=== PATIENT | male | born 2000 | race Caucasian/White ===

== ENCOUNTER 2020-12-29 18:51 | Emergency (ER) | payer BC ==
[2020-12-29] MEDS ORDERED: Lidocaine 1% 30 ML SDV INJECT ONE (19:48)
[2020-12-29] MEDS ORDERED: Diphtheria,Pertussis(Acell),Tetanus Vaccine 0.5 ML Syringe IM ONE (19:51)
--- NOTE | 2020-12-29 19:52 | EDM.PDOC ---
<Errol Jean - Last Filed: 12/29/20 20:06> ED HPI GENERAL MEDICAL PROBLEM - General Chief Complaint: Laceration Stated Complaint: CUT FINGER Time Seen by Provider: 12/29/20 19:48 - History of Present Illness INITIAL COMMENTS - FREE TEXT/NARRATIVE: Aviva is a 20 year old male presenting to the emergency department with a laceration on his right thumb. Laceration occurred about 3 hours ago cut it on a knife. He has good sensation in his finger tips and is able to move his thumb without any issues. - Related Data Allergies Allergy/AdvReac Type Severity Reaction Status Date / Time No Known Allergies Allergy Verified 12/29/20 19:14 Home Meds: Home Meds . [No Known Home Meds] 12/29/20 [History] Past Medical History - Past Health History Medical/Surgical History: Denies Medical/Surgical History - Infectious Disease History Infectious Disease History: Reports: None Social & Family History - Tobacco Use Tobacco Use Status *Q: Never Tobacco User Second Hand Smoke Exposure: No - Caffeine Use Caffeine Use: Reports: Soda - Recreational Drug Use Recreational Drug Use: No ED ROS GENERAL - Review of Systems Review Of Systems: Comprehensive ROS is negative, except as noted in HPI. ED EXAM, SKIN/RASH Exam: See Below Exam Limited By: No Limitations General Appearance: Alert, No Apparent Distress Eye Exam: Bilateral Eye: EOMI Ears: Normal External Exam Nose: Normal Inspection Respiratory/Chest: No Respiratory Distress, Lungs Clear, Normal Breath Sounds Cardiovascular: Normal Peripheral Pulses, Regular Rate, Rhythm Skin: Wound/Incision (2 cm laceration on base of thumb ) ED SKIN PROCEDURES - Laceration/Wound Repair Right Posterior Midline Digit - 1st (Thumb) Anesthetic Type: Local Local Anesthesia - Lidocaine (Xylocaine): 1% Plain Local Anesthetic Volume: 3cc Skin Prep: Isopropyl Alcohol (Alcohol) Closed with: Sutures Lac/Wound length In cm: 4 Suture Size: 4-0 # of Sutures: 3 Suture Type: Other (ethilon ) Departure - Departure Time of Disposition: 20:09 Disposition: Home, Self-Care 01 Clinical Impression: Laceration - Discharge Information *PRESCRIPTION DRUG MONITORING PROGRAM REVIEWED*: Not Applicable *COPY OF PRESCRIPTION DRUG MONITORING REPORT IN PATIENT EAMON: Not Applicable Instructions: Laceration Care, Adult, [id number] Forms: ED Department Discharge Additional Instructions: Advised patient he needs to follow-up in 7-10 days for suture removal, signs of infection discussed, follow-up if present. Sepsis Event Note (ED) - Evaluation Sepsis Screening Result: No Definite Risk <Berenice Pinon - Last Filed: 12/30/20 06:09> Course - Vital Signs Last Recorded V/S: Last Vital Signs Temp 98.8 F 12/29/20 19:10 Pulse 83 12/29/20 20:15 Resp 20 12/29/20 20:15 BP 140/82 12/29/20 20:15 Pulse Ox 99 12/29/20 20:15 - Orders/Labs/Meds Meds: Medications Discontinued Medications Generic Name Dose Route Start Last Admin Trade Name Freq PRN Reason Stop Dose Admin Diphtheria/Tetanus/Acell Pertussis 0.5 ml 12/29/20 19:51 12/29/20 20:13 Diphtheria,Pertussis(Acell),Tetanus Vaccine 0.5 Ml Syringe IM 12/29/20 19:52 0.5 ml .ONCE ONE Administration Lidocaine HCl 30 ml 12/29/20 19:48 12/29/20 20:13 Lidocaine 1% 30 Ml Sdv INJECT 12/29/20 19:49 30 ml ONETIME ONE Administration - Re-Assessments/Exams Free Text/Narrative Re-Assessment/Exam: 12/30/20 06:09 I have examined the patient. I have discussed findings and treatment plan with resident. I agree with assessment plan and documentation. Sepsis Event Note (ED) - Focused Exam Vital Signs: Vital Signs Temp Pulse Resp BP Pulse Ox 12/29/20 20:15 83 20 140/82 99 12/29/20 19:10 98.8 F 87 20 160/87 H 99
== END 2020-12-29 20:31 | disposition home or self-care (01) ==
LOC: DL.ED 18:51
DX: S61.011A Laceration without foreign body of right thumb without damage to nail, initial encounter (principal); Z23 Encounter for immunization; W26.0XXA Contact with knife, initial encounter
CPT/HCPCS: 12001; 12002; 90471; 90715; 99282-25; 99283